=== PATIENT | female | born 1965 | race Caucasian/White ===

== ENCOUNTER 2016-10-18 12:45 | Emergency (ER) | payer MEDICAID ==
[~2016-10-18] VITALS: Ht 157.5 cm; Wt 59.0 kg
[2016-10-18 12:54] VITALS: BP 127/69
--- NOTE | 2016-10-18 13:20 | PHYS DOC ---
Past Medical History Past Medical History: No Pertinent History Past Surgical History: Hysterectomy, Tonsillectomy Additional Past Surgical Histo: right knee Alcohol Use: None Drug Use: None Adult General Chief Complaint Chief Complaint: GENERALIZED BODY ACHES [facility] HPI Patient is a 50 year old female presents to the emergency department with a history of generalized body aches and pain for the last week. Patient states she has chronic thoracic back pain. Patient denies taking medication for the pain and discomfort. Patient denies numbness or tingling in the lower extremities. Patient states she thought that she had a UTI prior the body aches. Patient states she drank a lot of water and cranberry juice and feels that the infection is clear. Patient states she has been having hot flashes but believes she is menopausal. Review of Systems Review of Systems Constitutional: Denies fever or chills [] Eyes: Denies change in visual acuity, redness, or eye pain [] HENT: Denies nasal congestion or sore throat [] Respiratory: Denies cough or shortness of breath [] Cardiovascular: No additional information not addressed in HPI [] GI: Denies abdominal pain, nausea, vomiting, bloody stools or diarrhea [] : Denies dysuria or hematuria [] Musculoskeletal: Denies back pain or joint pain. Generalized body pain Integument: Denies rash or skin lesions [] Neurologic: Denies headache, focal weakness or sensory changes [] Endocrine: Denies polyuria or polydipsia [] Current Medications Current Medications Current Medications Medications (Trade) Dose Ordered Sig/Erika Start Time Stop Time Status Last Admin Dose Admin Ibuprofen (Motrin) 800 mg 1X ONCE 10/18/16 13:30 10/18/16 13:31 DC 10/18/16 13:37 800 MG Allergies Allergies Allergies Coded Allergies Type Severity Reaction Last Updated Verified oxaprozin Allergy Intermediate 08/13/14 No Physical Exam Physical Exam Constitutional: Well developed, well nourished, no acute distress, non-toxic appearance. [] HENT: Normocephalic, atraumatic, bilateral external ears normal, oropharynx moist, no oral exudates, nose normal. [] Eyes: PERRLA, EOMI, conjunctiva normal, no discharge. [] Neck: Normal range of motion, no tenderness, supple, no stridor. [] Cardiovascular:Heart rate regular rhythm, no murmur [] Lungs & Thorax: Bilateral breath sounds clear to auscultation [] Skin: Warm, dry, no erythema, no rash. [] Back: No tenderness, right CVA tenderness. [] Extremities: No tenderness, no cyanosis, no clubbing, ROM intact, no edema. Patient able to perform straight leg raises with out difficulty. Equal automatic winder operator noted to upper extremities. Neurologic: Alert and oriented X 3, normal motor function, normal sensory function, no focal deficits noted. [] Psychologic: Affect normal, judgement normal, mood normal. [] Current Patient Data Vital Signs Vital Signs Date Time Temp Pulse Resp B/P (MAP) Pulse Ox O2 Delivery O2 Flow Rate FiO2 10/18/16 12:54 97.6 98 18 127/69 (88) 98 Room Air 97.6 Lab Values Laboratory Tests Test 10/18/16 12:44 10/18/16 13:21 POC Urine HCG, Qualitative Hcg negative (Negative) Urine Collection Type Unknown Urine Color Yellow Urine Clarity Clear Urine pH 5.5 Urine Specific Grayson >=1.030 Urine Protein Negative mg/dL (NEG-TRACE) Urine Glucose (UA) Negative mg/dL (NEG) Urine Ketones (Stick) Negative mg/dL (NEG) Urine Blood Negative (NEG) Urine Nitrite Negative (NEG) Urine Bilirubin Negative (NEG) Urine Urobilinogen Dipstick 0.2 mg/dL (0.2 mg/dL) Urine Leukocyte Esterase Small (NEG) Urine RBC 0 /HPF (0-2) Urine WBC 1-4 /HPF (0-4) Urine Squamous Epithelial Cells Mod /LPF Urine Bacteria Few /HPF (0-FEW) Urine Mucus Marked /LPF EKG EKG [] Radiology/Procedures Radiology/Procedures [] Course & Med Decision Making Course & Med Decision Making Pertinent Labs and Imaging studies reviewed. (See chart for details) Urine was positive for small amount of leukocyte Estrace. Patient will be discharged home with Macrobid with recommended patient to use Tylenol or ibuprofen for pain and discomfort. Patient will be discharged home in stable condition she was provided with signs and symptoms to return back to the emergency department. Patient agrees with discharge instructions, treatment regimens and follow-up recommendations. All questions were answered patient's bedside. [] Dragon Disclaimer Dragon Disclaimer This electronic medical record was generated, in whole or in part, using a voice recognition dictation system. Departure Departure Impression: Primary Impression: UTI (urinary tract infection) Disposition: 01 HOME, SELF-CARE Condition: STABLE Referrals: NO PCP (PCP) Patient Instructions: Urinary Tract Infection, [id number] Additional Instructions: Activity as tolerated. Tylenol or ibuprofen for pain and discomfort. Macrobid as prescribed to help with urinary tract infection. Drink plenty of fluids. Treatment plenty of water and cranberry juice. Avoid cranberry juice cocktail carbonate beverages, citrus fruits of alcohol and caffeine as these are considered irritants to the bladder. Follow-up the primary care physician next 7-10 days to make sure you cleared the infection. Return back to emergency department sign symptoms of become worse. Scripts Nitrofurantoin Monohyd/M-Cryst (MACROBID 100 MG CAPSULE) 100 Mg Capsule 1 CAP PO BID, #14 CAP Prov: CAMILLE CHINCHILLA APRN 10/18/16 CAMILLE CHINCHILLA APRN Oct 18, 2016 13:20
[2016-10-18] MEDS ORDERED: IBUPROFEN 800 MG TABLET. PO ONE (13:30)
[2016-10-18 13:50] LABS: BILIRUBIN,URINE NEGATIVE (NEG); GLUCOSE,URINE NEGATIVE (NEG); NITRITE,URINE NEGATIVE (NEG); PH,URINE 5.5; PROTEIN,URINE NEGATIVE (NEG-TRACE); UROBILINOGEN,URINE 0.2 mg/dL (0.2 mg/dL)
[2016-10-18 13:57] LABS: BACTERIA,URINE FEW /HPF (0-FEW); RBC,URINE 0 /HPF (0-2); SQUAMOUS EPITHELIAL CELL,UR MOD /LPF
[2016-10-18] MEDS ORDERED: NITR100C62 PO (14:20)
== END 2016-10-18 14:29 | disposition home or self-care (01) ==
LOC: ER 12:45
DX: N39.0 Urinary tract infection, site not specified (principal); M54.6 Pain in thoracic spine; G89.29 Other chronic pain; Z88.8 Allergy status to other drugs, medicaments and biological substances; Z90.710 Acquired absence of both cervix and uterus
CPT/HCPCS: 81001; 81025; 87086; 99284

== ENCOUNTER 2017-03-31 16:23 | Emergency (ER) | payer SELFPAY, MEDICAID | END 2017-03-31 17:33 | disposition home or self-care (01) | LOC: ER 17:33 | DX: J02.9 Acute pharyngitis, unspecified (principal); J44.9 Chronic obstructive pulmonary disease, unspecified; Z90.710 Acquired absence of both cervix and uterus; Z88.8 Allergy status to other drugs, medicaments and biological substances | CPT/HCPCS: 99283 ==

== ENCOUNTER 2018-07-22 13:17 | Emergency (ER) | payer SELFPAY ==
[~2018-07-22] VITALS: Ht 157.5 cm; Wt 54.4 kg
[~2018-07-22 13:17] MED LIST: AZIT250T6 PO; BENZ100C PO; NITR100C62 PO; PRED20TA PO
[2018-07-22 13:28] VITALS: BP 130/68
[2018-07-22] MEDS ORDERED: PRED50TA PO (14:15)
[2018-07-22] MEDS ORDERED: BENZ100C PO (14:15)
--- NOTE | 2018-07-22 14:15 | PHYS DOC ---
Past Medical History Past Medical History: Asthma, Bronchitis, COPD (HENRIQUE DELAROSA LISA) Past Surgical History: Hysterectomy, Tonsillectomy, Other Additional Past Surgical Histo: right knee (HENRIQUE DELAROSA LISA) Alcohol Use: None Drug Use: None (HENRIQUE DELAROSA LISA) Adult General Chief Complaint Chief Complaint: SORE THROAT HPI HPI Patient is a 52 year old female who presents to the ED today complaining of sore throat, cough, or lateral hip pain, symptoms began 5 days ago. Rates the ear pain is mild. Denies anything exacerbating or relieving the ear pain. Denies any fever. Current smoker. (HENRIQUE DELAROSA LISA) Review of Systems Review of Systems Constitutional: Denies fever or chills [] Eyes: Denies change in visual acuity, redness, or eye pain [] HENT: Reports sore throat and nasal congestion. Reports bilateral ear pain Respiratory: Reports cough, denies shortness of breath [] Cardiovascular: No additional information not addressed in HPI [] GI: Denies abdominal pain, nausea, vomiting, bloody stools or diarrhea [] : Denies dysuria or hematuria [] Musculoskeletal: Denies back pain or joint pain [] Integument: Denies rash or skin lesions [] Neurologic: Denies headache, focal weakness or sensory changes [] All other systems were reviewed and found to be within normal limits, except as documented in this note. (HENRIQUE DELAROSA APRN) Allergies Allergies Allergies Coded Allergies Type Severity Reaction Last Updated Verified oxaprozin Allergy Intermediate 08/13/14 No (MELL MATTSON MD) Physical Exam Physical Exam Constitutional: Well developed, well nourished, no acute distress, non-toxic appearance. [] HENT: Normocephalic, atraumatic, bilateral external ears normal, oropharynx moist, no oral exudates, nose normal. [] Eyes: PERRLA, EOMI, conjunctiva normal, no discharge. [] Neck: Normal range of motion, no tenderness, supple, no stridor. [] Cardiovascular:Heart rate regular rhythm, no murmur [] Lungs & Thorax: Bilateral breath sounds clear to auscultation [] Abdomen: Bowel sounds normal, soft, no tenderness, no masses, no pulsatile masses. [] Skin: Warm, dry, no erythema, no rash. [] Back: No tenderness, no CVA tenderness. [] Extremities: No tenderness, no cyanosis, no clubbing, ROM intact, no edema. [] Neurologic: Alert and oriented X 3, normal motor function, normal sensory function, no focal deficits noted. [] Psychologic: Affect normal, judgement normal, mood normal. [] (HENRIQUE DELAROSA APRN) Current Patient Data Vital Signs Vital Signs Date Time Temp Pulse Resp B/P (MAP) Pulse Ox O2 Delivery O2 Flow Rate FiO2 07/22/18 13:28 99.4 89 16 130/68 (88) 98 Room Air 99.4 (MELL MATTSON MD) Lab Values Laboratory Tests Test 07/22/18 13:36 Group A Streptococcus Rapid Negative (NEGATIVE) (MELL MATTSON MD) EKG EKG [] (HENRIQUE DELAROSA APRN) Radiology/Procedures Radiology/Procedures [] (HENRIQUE DELAROSA APRN) Course & Med Decision Making Course & Med Decision Making Pertinent Labs and Imaging studies reviewed. (See chart for details) This is a 52-year-old female patient presenting with sore throat cough and ear pain bilaterally, symptoms began 3 days ago. Negative rapid strep. Symptoms are likely viral. Discharged with prednisone. Encouraged to take [id number] cough and cold medications/allergy medications. Follow-up with PCP in 1-2 weeks. smoking cessation advised she declined (HENRIQUE DELAROSA APRN) Course & Med Decision Making This patient was seen by an MACARIO. I did not see or treat the patient unless othe rwise specified. (MELL MATTSON MD) Dragon Disclaimer Dragon Disclaimer This electronic medical record was generated, in whole or in part, using a voice recognition dictation system. (HENRIQUE DELAROSA APRN) Departure Departure Impression: Primary Impression: Upper respiratory infection Additional Impressions: Smoking addiction Acute viral pharyngitis Cough Disposition: 01 HOME, SELF-CARE Condition: STABLE Referrals: NO PCP (PCP) follow up in 1 week Patient Instructions: Cough, Adult, Rjnq-il-Bduy, Smoking Cessation, Upper Respiratory Infection, Adult, Ftos-[id number] Additional Instructions: You were evaluated in the emergency room, your rapid strep test is negative. Follow-up with your doctor in 1-2 weeks. Come back to the ED at any point symptoms worsen. Scripts Benzonatate (TESSALON PERLE) 100 Mg Capsule 1 CAP PO TID, #21 CAP Prov: HENRIQUE DELAROSA OUTREACH ASSISTANT 07/22/18 Prednisone (PREDNISONE) 50 Mg Tablet 1 TAB PO DAILY, #5 TAB Prov: HENRIQUE DELAROSA OUTREACH ASSISTANT 07/22/18 Prednisone (PREDNISONE) 50 Mg Tablet 1 TAB PO DAILY, #5 TAB Prov: HENRIQUE DELAROSA APRN 07/22/18 Problem Qualifiers Primary Impression: Upper respiratory infection URI type: unspecified URI Qualified Codes: J06.9 - Acute upper respiratory infection, unspecified WASHINGTONHENRIQUE APRN July 22, 2018 14:15 MELL MATTSON MD July 22, 2018 18:16
== END 2018-07-22 14:23 | disposition home or self-care (01) ==
LOC: ER 13:17
DX: J02.8 Acute pharyngitis due to other specified organisms (principal); B97.89 Other viral agents as the cause of diseases classified elsewhere; H92.03 Otalgia, bilateral; M25.559 Pain in unspecified hip; F17.200 Nicotine dependence, unspecified, uncomplicated; J44.9 Chronic obstructive pulmonary disease, unspecified; Z90.710 Acquired absence of both cervix and uterus; Z90.89 Acquired absence of other organs; Z88.8 Allergy status to other drugs, medicaments and biological substances
CPT/HCPCS: 87070; 87880; 99283

== ENCOUNTER 2018-10-27 21:47 | Emergency (ER) | payer SELFPAY ==
[~2018-10-27] VITALS: Ht 157.5 cm; Wt 56.7 kg
[~2018-10-27 21:47] MED LIST changes: +PRED50TA PO
[2018-10-27 22:05] VITALS: BP 126/58
[2018-10-27] MEDS ORDERED: PRED50TA PO (22:14)
--- NOTE | 2018-10-27 22:14 | PHYS DOC ---
Past Medical History Past Medical History: Asthma, Bronchitis, COPD (HENRIQUE DELAROSA APRN) Past Surgical History: Hysterectomy, Tonsillectomy, Other Additional Past Surgical Histo: right knee (HENRIQUE DELAROSA APRN) Alcohol Use: None Drug Use: None (BASHIRHENRIQUE Bangura APRN) Adult General Chief Complaint Chief Complaint: EARACHE/EAR PAIN HPI HPI Patient is a 52 year old male with history of COPD-current smoker, asthma, bronchitis, who presents to the ED today complaining of sore throat, bilateral ear pain, congestion in her ears over symptoms began yesterday. Denies any fever. Patient is also requesting a note for work. (BASHIRHENRIQUE Bangura APRN) Review of Systems Review of Systems Constitutional: Denies fever or chills [] Eyes: Denies change in visual acuity, redness, or eye pain [] HENT: Reports nasal congestion, bilateral ear pain, and sore throat [] Respiratory: Denies cough or shortness of breath [] Cardiovascular: No additional information not addressed in HPI [] GI: Denies abdominal pain, nausea, vomiting, bloody stools or diarrhea [] : Denies dysuria or hematuria [] Musculoskeletal: Denies back pain or joint pain [] Integument: Denies rash or skin lesions [] Neurologic: Denies headache, focal weakness or sensory changes [] Endocrine: Denies polyuria or polydipsia [] All other systems were reviewed and found to be within normal limits, except as documented in this note. (WASHINGTONHENRIQUE APRN) Allergies Allergies Allergies Coded Allergies Type Severity Reaction Last Updated Verified oxaprozin Allergy Intermediate 08/13/14 No (VICKY ARROYO MD) Physical Exam Physical Exam Constitutional: Well developed, well nourished, no acute distress, non-toxic appearance. [] HENT: Normocephalic, atraumatic, bilateral external ears normal, oropharynx moist, no oral exudates, nose normal. Small amount of clear fluid in bilateral TM, no infection. Eyes: PERRLA, EOMI, conjunctiva normal, no discharge. [] Neck: Normal range of motion, no tenderness, supple, no stridor. [] Cardiovascular:Heart rate regular rhythm, no murmur [] Lungs & Thorax: Bilateral breath sounds clear to auscultation [] Abdomen: Bowel sounds normal, soft, no tenderness, no masses, no pulsatile masses. [] Skin: Warm, dry, no erythema, no rash. [] Back: No tenderness, no CVA tenderness. [] Extremities: No tenderness, no cyanosis, no clubbing, ROM intact, no edema. [] Neurologic: Alert and oriented X 3, normal motor function, normal sensory function, no focal deficits noted. [] Psychologic: Affect normal, judgement normal, mood normal. [] (HENRIQUE DELAROSA APRN) Current Patient Data Vital Signs Vital Signs Date Time Temp Pulse Resp B/P (MAP) Pulse Ox O2 Delivery O2 Flow Rate FiO2 10/27/18 22:05 98.0 78 16 98 Room Air 98.0 (VICKY ARROYO MD) EKG EKG [] (HENRIQUE DELAROSA APRN) Radiology/Procedures Radiology/Procedures [] (HENRIQUE DELAROSA APRN) Course & Med Decision Making Course & Med Decision Making Pertinent Labs and Imaging studies reviewed. (See chart for details) This is a 52-year-old female patient with history of smoking presents today complaining of sore throat, bilateral ear pain with sensation of congestion in bilateral ears and throat, symptoms began yesterday. Educated on smoking cessation. Physical exam is benign. Discharged with prednisone. Decongestants recommended. Follow-up with PCP in 1-2 weeks. Work note provided for 3 days. (HENRIQUE DELAROSA APRN) Course & Med Decision Making Staff Physician Addendum: I was working in the ER during the course of this patient's visit. I was available for consultation as needed, but I was not directly involved in the care of this patient. (VICKY ARROYO MD) Dragon Disclaimer Dragon Disclaimer This electronic medical record was generated, in whole or in part, using a voice recognition dictation system. (HENRIQUE DELAROSA APRN) Departure Departure Impression: Primary Impression: Upper respiratory infection Additional Impressions: Smoking addiction Otalgia of both ears Acute viral pharyngitis Disposition: HOME, SELF-CARE Condition: STABLE Referrals: NO PCP (PCP) Follow-up with your doctor in 1-2 weeks Patient Instructions: Otalgia-Brief, Upper Respiratory Infection, Adult, Aylc-fe-Meqp, Viral Pharyngitis Additional Instructions: You were evaluated in the emergency room, as discussed consider using a decongestant. Rest, push fluids. Consider smoking cessation. Take the prescribed medication as ordered. Follow-up with your own doctor in 1-2 weeks. Scripts Prednisone (PREDNISONE) 50 Mg Tablet 1 TAB PO DAILY, #5 TAB Prov: HENRIQUE DELAROSA APRN 10/27/18 Problem Qualifiers Primary Impression: Upper respiratory infection URI type: unspecified URI Qualified Codes: J06.9 - Acute upper respiratory infection, unspecified HENRIQUE DELAROSA APRN Oct 27, 2018 22:14 VICKY ARROYO MD Oct 31, 2018 05:32
== END 2018-10-27 22:22 | disposition home or self-care (01) ==
LOC: ER 21:47
DX: J02.9 Acute pharyngitis, unspecified (principal); B97.89 Other viral agents as the cause of diseases classified elsewhere; H92.03 Otalgia, bilateral; F17.200 Nicotine dependence, unspecified, uncomplicated; J44.9 Chronic obstructive pulmonary disease, unspecified; Z90.89 Acquired absence of other organs; Z88.8 Allergy status to other drugs, medicaments and biological substances
CPT/HCPCS: 99283

== ENCOUNTER 2019-01-26 14:20 | Emergency (ER) | payer SELFPAY ==
[~2019-01-26] VITALS: Ht 157.5 cm; Wt 56.7 kg
[2019-01-26 15:06] VITALS: BP 143/91
[2019-01-26] MEDS ORDERED: ALBUTEROL SULFATE 2.5 MG/3 ML NEBU. ONE (15:13)
[2019-01-26] MEDS ORDERED: ALBUTEROL SULFATE 2.5 MG/3 ML NEBU. NEB ONE ×2 (15:15→16:45)
[2019-01-26] MEDS ORDERED: predniSONE 10 MG TABLET PO ONE (15:15)
--- NOTE | 2019-01-26 15:21 | PHYS DOC ---
Past Medical History Past Medical History: COPD (CAMILLE CHAMPION APRN) Past Surgical History: No Surgical History Additional Past Surgical Histo: right knee (CAMILLE CHAMPION APRN) Additional Information: 1/2 PK/DAY Alcohol Use: None Drug Use: None (CAMILLE CHAMPION APRN) Adult General Chief Complaint Chief Complaint: COUGH HPI HPI Patient is a 53 year old female who presents with 1 week of wheezing, cough and runny nose. Patient states she is a smoker she does have a history of COPD. Patient states she's been using her girlfriends Albuterol inhaler but is not enough. Denies any pain. States her chest is very tight. She denies fever. (CAMILLE CHAMPION APRN) Review of Systems Review of Systems HENT: nasal congestion or denies sore throat [] Respiratory: cough or shortness of breath [] Cardiovascular: Tightness All other systems were reviewed and found to be within normal limits, except as documented in this note. (CAMILLE CHAMPION APRN) Current Medications Current Medications Current Medications Medications (Trade) Dose Ordered Sig/Erika Start Time Stop Time Status Last Admin Dose Admin Albuterol Sulfate (Ventolin Neb Soln) 2.5 mg 1X ONCE 01/26/19 16:45 01/26/19 16:46 DC 01/26/19 16:53 2.5 MG Benzonatate (Tessalon Perle) 200 mg 1X ONCE 01/26/19 16:45 01/26/19 16:46 DC 01/26/19 17:06 200 MG Prednisone (Prednisone) 50 mg 1X ONCE 01/26/19 15:15 01/26/19 15:16 DC 01/26/19 15:24 50 MG (DESTINY DUNNE DO) Allergies Allergies Allergies Coded Allergies Type Severity Reaction Last Updated Verified oxaprozin Allergy Intermediate 08/13/14 No (DESTINY DUNNE DO) Physical Exam Physical Exam Constitutional: Well developed, well nourished, no acute distress, non-toxic appearance. [] HENT: Normocephalic, atraumatic, bilateral external ears normal, oropharynx moist, no oral exudates, nose normal. [] Eyes: PERRLA, EOMI, conjunctiva normal, no discharge. [] Neck: Normal range of motion, no tenderness, supple, no stridor. [] Cardiovascular:Heart rate regular rhythm, no murmur [] Lungs & Thorax: Bilateral breath sounds Inspiratory and expiratory wheezes to auscultation [] Abdomen: Bowel sounds normal, soft, no tenderness, no masses, no pulsatile masses. [] Skin: Warm, dry, no erythema, no rash. [] Neurologic: Alert and oriented X 3, normal motor function, normal sensory function, no focal deficits noted. [] Psychologic: Affect normal, judgement normal, mood normal. [] (CAMILLE CHAMPION APRN) Current Patient Data Vital Signs Vital Signs Date Time Temp Pulse Resp B/P (MAP) Pulse Ox O2 Delivery O2 Flow Rate FiO2 01/26/19 16:54 99 Room Air 01/26/19 15:06 99.1 91 20 143/91 (108) 99.1 (DESTINY DUNNE DO) EKG EKG [] (CAMILLE CHAMPION APRN) Radiology/Procedures Radiology/Procedures [] (CAMILLE CHAMPION APRN) Impressions: [facility] [address] [place] [address] IMAGING REPORT Signed PATIENT: SUBHASH SIMPSON ACCOUNT: [id number] : 1965 LOCATION: ER AGE: 53 SEX: F EXAM STATUS: REG ER ORD. PHYSICIAN: CAMILLE CHAMPION APRN REASON: cough PROCEDURE: CHEST PA & LATERAL EXAM: Chest, 2 views. HISTORY: Cough. COMPARISON: None. FINDINGS: 2 views of chest are obtained. There is no infiltrate, pleural effusion or pneumothorax. The heart is normal in size. There is suspected linear atelectasis or scarring within the left lung base. IMPRESSION: Suspected linear scarring or atelectasis within the left lung base. No acute infiltrate. Electronically signed by: Ana Giraldo MD (01/26/2019 4:34 PM) [place] [id number] DICTATED and SIGNED BY: ANA GIRALDO MD DATE: 01/26/19 [id number] (CAMILLE CHAMPION APRN) Course & Med Decision Making Course & Med Decision Making Vital signs are within normal limits. Patient has respiratory expiratory wheezes throughout bilateral lungs. Abdomen is soft and nontender. Patient denies nausea, vomiting, dizziness, headache, syncope, chest pain, throat pain, ear pain, abdominal pain, numbness or tingling, visual changes. Patient speaks in full clear sentences. Patient is a dry cough. Alert and oriented. Skin pink warm and dry. Mucus Membranes moist. Ambulatory with a steady gait. Throat reddened without swelling or exudates. Bilateral tympanic white. Chest Xray shows IMPRESSION: Suspected linear scarring or atelectasis within the left lung base. No acute infiltrate. (CAMILLE CHAMPION APRN) Dragon Disclaimer Dragon Disclaimer This electronic medical record was generated, in whole or in part, using a voice recognition dictation system. (CAMILLE CHAMPION APRN) Departure Departure Impression: Primary Impression: Upper respiratory infection Disposition: HOME, SELF-CARE Condition: STABLE Referrals: NO PCP (PCP) Patient Instructions: Upper Respiratory Infection, Adult Additional Instructions: Follow up with primary care physician. Take medications as prescribed. Scripts Benzonatate (TESSALON PERLE) 100 Mg Capsule 200 MG PO TID PRN for COUGH, #30 CAP Prov: ELGINEMERITA LUCIAADAMS Francis APRN 01/26/19 Methylprednisolone (MEDROL) 4 Mg Tab.ds.pk 1 PKG PO UD, #1 PKG START 01/27/2019 Prov: ELGINUSCAMILLE Francis APRN 01/26/19 Azithromycin (AZITHROMYCIN TABLET) 250 Mg Tablet 1 PKG PO UD for 5 Days, #6 TAB 0 Refills 2 the first day followed by 1 for days 2-5 Prov: CAMILLE CHAMPION APRN 01/26/19 Albuterol Sulfate (PROAIR HFA INHALER) 8.5 Gm Hfa.aer.ad 1 PUFF INH PRN Q6HRS PRN for SHORTNESS OF BREATH, #1 INHALER 0 Refills Prov: CAMILLE CHAMPION APRN 01/26/19 Attending Signature Attending Signature I have reviewed the PA/STRAIGHT PIN MAKING MACHINE OPERATOR's note and plan of care. I was available for consultation as needed during the patient's visit in the emergency department. I agree with the clinical impression, plan, and disposition. (DESTINY DUNNE DO) Problem Qualifiers Primary Impression: Upper respiratory infection URI type: unspecified viral URI Qualified Codes: J06.9 - Acute upper res piratory infection, unspecified CAMILLE CHAMPION APRN Jan 26, 2019 15:21 DESTINY DUNNE DO Jan 28, 2019 12:59
--- NOTE | 2019-01-26 16:38 | RAD ---
EXAM: Chest, 2 views. HISTORY: Cough. COMPARISON: None. FINDINGS: 2 views of chest are obtained. There is no infiltrate, pleural effusion or pneumothorax. The heart is normal in size. There is suspected linear atelectasis or scarring within the left lung base. IMPRESSION: Suspected linear scarring or atelectasis within the left lung base. No acute infiltrate. Electronically signed by: Ana Ibarra MD (01/26/2019 4:34 PM) [place] [id number]
[2019-01-26] MEDS ORDERED: BENZONATATE 100 MG CAPSULE. PO ONE (16:45)
[2019-01-26] MEDS ORDERED: ALBU2.5V8 INH (16:47)
[2019-01-26] MEDS ORDERED: METH4TAB2 PO (16:47)
[2019-01-26] MEDS ORDERED: AZIT250T6 PO (16:47)
[2019-01-26] MEDS ORDERED: BENZ100C PO (16:47)
== END 2019-01-26 17:04 | disposition home or self-care (01) ==
LOC: ER 14:20
DX: J06.9 Acute upper respiratory infection, unspecified (principal); R07.89 Other chest pain; J44.9 Chronic obstructive pulmonary disease, unspecified
CPT/HCPCS: 71046; 94640; 99284; J7512; J7613